=== PATIENT | male | born 1985 | race Caucasian/White ===

== ENCOUNTER 2017-05-20 09:57 | Emergency (ER) | payer SELFPAY ==
[~2017-05-20] VITALS: Ht 182.8 cm; Wt 124.7 kg
[~2017-05-20 09:57] MED LIST: CATAFLAM50 MG PO; CLINDAMYCIN HC300 MG PO; CLINDAMYCIN300 MG PO; NAPROSYN500 MG PO; NORFLEX100 MG PO; PARAFON FORTE500 MG PO; PERCOCET 325 MG1 TA2 PO; TYLENOL W/CODEI1 TA2 PO
[2017-05-20 11:21] LABS: BILIRUBIN NEGATIVE (NEGATIVE); BLOOD NEGATIVE (NEGATIVE); CLARITY CLEAR (CLEAR); COLOR YELLOW (YELLOW); GLUCOSE NEGATIVE (NEGATIVE); KETONE NEGATIVE (NEGATIVE); LEUKO ESTERASE NEGATIVE (NEGATIVE); NITRITE NEGATIVE (NEGATIVE); PROTEIN NEGATIVE (NEGATIVE); UROBILINOGEN 0.2 E.U./dl (0.2-1.0)
[2017-05-20 11:27] LABS: URINE REFLEX COMMENT NO (NO)
== END 2017-05-20 12:07 | disposition home or self-care (01) ==
LOC: ED 09:57
PROVIDERS: Nurse Practitioner Family
DX: Z20.2 Contact with and (suspected) exposure to infections with a predominantly sexual mode of transmission (principal); F17.200 Nicotine dependence, unspecified, uncomplicated; Z88.1 Allergy status to other antibiotic agents

== ENCOUNTER 2017-08-14 00:28 | Emergency (ER) | payer SELFPAY ==
[~2017-08-14] VITALS: Ht 182.8 cm; Wt 133.8 kg
[2017-08-14] MEDS ORDERED: NORCO 5-325 TA1 EACH PO (01:42)
[2017-08-14] MEDS ORDERED: PREDNISONE20 M1 PO (01:42)
[2017-08-14] MEDS ORDERED: Orphenadrine C100 MG PO (01:42)
== END 2017-08-14 02:08 | disposition home or self-care (01) ==
LOC: ED 00:28
DX: M54.30 Sciatica, unspecified side (principal); F17.200 Nicotine dependence, unspecified, uncomplicated; Z88.1 Allergy status to other antibiotic agents

== ENCOUNTER 2019-05-01 10:16 | Emergency (ER) | payer SELFPAY ==
[~2019-05-01] VITALS: Ht 182.8 cm; Wt 140.6 kg
[~2019-05-01 10:16] MED LIST changes: +NORCO 5-325 TA1 EACH PO; +Orphenadrine C100 MG PO; +PREDNISONE20 M1 PO
[2019-05-01] MEDS ORDERED: NAPROSYN500 MG PO (11:35)
[2019-05-01] MEDS ORDERED: CYCLOBENZAPRINE10 MG PO (11:35)
== END 2019-05-01 11:39 | disposition home or self-care (01) ==
LOC: ED 10:16
DX: M62.830 Muscle spasm of back (principal); M54.5 Low back pain; Z88.1 Allergy status to other antibiotic agents; Z79.899 Other long term (current) drug therapy